=== PATIENT | female | born 1945 | race Caucasian/White ===

== ENCOUNTER 2021-08-17 07:44 | Inpatient (IN) | payer OTHER ==
[~2021-08-17] VITALS: Ht 167.6 cm; Wt 98.0 kg
[2021-08-17 08:41] LABS: EOSINOPHILS % 5.8 % (0.0-5.0); HEMATOCRIT. 39.8 % (36.0-48.0); LYMPHOCYTES % 29.5 % (20.0-50.0); MEAN CORPUSCULAR HEMOGLOBIN 30.3 pg (28.0-32.0); MEAN CORPUSCULAR VOLUME 92.9 fL (81.0-99.0); MEAN PLATELET VOLUME 9.1 fl (7.4-10.4); MONOCYTES % 6.2 % (2.0-8.0); NEUTROPHILS % 57.5 % (40.0-76.0); PLATELET 250 x1000/uL (130-400); RED BLOOD CELL COUNT 4.29 mill/uL (4.2-5.4); RED CELL DISTRIBUTION WIDTH 15.3 % (11.6-14.6)
[2021-08-17 08:43] LABS: CHLORIDE 107 mEq/L (98-107)
[2021-08-17 09:43] LABS: BG BASE EXCESS -5.6 mmol/L (-2.0-2.0); BG CARBOXYHEMOGLOBIN 0.1 % (0.5-1.5); BG DEOXYHEMOGLOBIN 6.5 % (0.0-5.0); BG FRACTION INSPIRED OXYGEN 100; BG HCO3 ACT 19.4 mmol/L (22.0-26.0); BG OXYGEN SATURATION 93.5 % (92.0-98.5); BG OXYHEMOGLOBIN 93.4 % (94.0-97.0); BG PCO2 36.4 mmHg (35.0-45.0); BG PH 7.345 (7.350-7.450); BG PO2 74.2 mmHg (75.0-100.0); BG SAMPLE SITE RIGHT RADIAL; BG TOTAL HEMOGLOBIN 12.4 g/dL (12.0-18.0); BG VENT MODE MASK - NRB
[2021-08-17] MEDS ORDERED: IOHEXOL-350 100 ML BOTTLE ONE (12:20)
[2021-08-17] MEDS ORDERED: HEPARIN 5000 UNITS/ML VIAL IV PRN ×2 (12:45)
[2021-08-17] MEDS ORDERED: HEPARIN 5000 UNITS/ML VIAL IV SCH (12:45)
[2021-08-17] MEDS ORDERED: HEPARIN 25,000 UNITS PREMIX 250 ML IV PRN (12:45)
[2021-08-17] MEDS ORDERED: HEPARIN BOLUS PRN aPTT <36 IV (13:00)
[2021-08-17] MEDS ORDERED: MAGNESIUM/ALUMINUM HYDROXIDE/SIMETHICONE 30ML UDC PO PRN (13:00)
[2021-08-17] MEDS ORDERED: ACETAMINOPHEN 325MG TABLET PO PRN ×2 (13:00)
[2021-08-17] MEDS ORDERED: GUAIFENESIN 200MG/10ML SUGAR FREE UDC PO PRN (13:00)
[2021-08-17] MEDS ORDERED: HYDROCODONE/ACETAMINOPHEN 5/325MG TABLET PO PRN (13:00)
[2021-08-17] MEDS ORDERED: ONDANSETRON HCL 4MG/2ML INJ IV PRN (13:00)
[2021-08-17] MEDS ORDERED: IPRATROPIUM/ALBUTEROL 0.5-3(2.5)MG/3ML NEB NEB PRN (13:00)
[2021-08-17] MEDS ORDERED: CLONIDINE 0.1MG TABLET PO PRN (13:00)
[2021-08-17 13:40] LABS: INR 1.1; PROTHROMBIN TIME 11.4 sec (9.6-11.0)
[2021-08-17] MEDS ORDERED: HEPARIN 80 UNITS/KG BOLUS IV SCH (14:00)
[2021-08-17] MEDS ORDERED: MEDR10TA3 PO (17:05)
[2021-08-17 23:17] LABS: BASOPHILS % 1.2 % (0.0-2.0); EOSINOPHILS % 2.2 % (0.0-5.0); HEMATOCRIT. 36.5 % (36.0-48.0); HEMOGLOBIN. 11.8 g/dL (12.0-16.0); LYMPHOCYTES % 22.8 % (20.0-50.0); MEAN CORPUSCULAR HEMOGLOBIN 29.9 pg (28.0-32.0); MEAN CORPUSCULAR VOLUME 92.7 fL (81.0-99.0); MEAN PLATELET VOLUME 8.6 fl (7.4-10.4); MONOCYTES % 6.3 % (2.0-8.0); NEUTROPHILS % 67.5 % (40.0-76.0); PLATELET 258 x1000/uL (130-400); RED BLOOD CELL COUNT 3.93 mill/uL (4.2-5.4); RED CELL DISTRIBUTION WIDTH 15.2 % (11.6-14.6)
[2021-08-17] MEDS: SODIUM CHLORIDE 0.45% 1,000 ML IV SCH (23:19)
[2021-08-18] VITALS (9 sets, daily range): BP systolic 117–138; BP diastolic 65–80
[2021-08-18 06:13] LABS: BASOPHILS % 0.9 % (0.0-2.0); EOSINOPHILS % 3.8 % (0.0-5.0); HEMATOCRIT. 33.3 % (36.0-48.0); HEMOGLOBIN. 11.1 g/dL (12.0-16.0); LYMPHOCYTES % 27.2 % (20.0-50.0); MEAN CORPUSCULAR HEMOGLOBIN 30.7 pg (28.0-32.0); MEAN CORPUSCULAR VOLUME 92.4 fL (81.0-99.0); MEAN PLATELET VOLUME 9.1 fl (7.4-10.4); MONOCYTES % 6.7 % (2.0-8.0); NEUTROPHILS % 61.4 % (40.0-76.0); PLATELET 249 x1000/uL (130-400); RED BLOOD CELL COUNT 3.61 mill/uL (4.2-5.4); RED CELL DISTRIBUTION WIDTH 14.9 % (11.6-14.6)
[2021-08-18 06:54] LABS: CHLORIDE 107 mEq/L (98-107)
[2021-08-18] MEDS: SODIUM CHLORIDE 0.45% 1,000 ML IV SCH ×2 (08:39→17:47)
[2021-08-18 09:31] LABS: BG BASE EXCESS 1.2 mmol/L (-2.0-2.0); BG CARBOXYHEMOGLOBIN 0.3 % (0.5-1.5); BG DEOXYHEMOGLOBIN 4.4 % (0.0-5.0); BG FRACTION INSPIRED OXYGEN 100; BG HCO3 ACT 26.5 mmol/L (22.0-26.0); BG METHEMOGLOBIN 0.3 % (0.0-1.5); BG OXYGEN SATURATION 95.6 % (92.0-98.5); BG PCO2 45.1 mmHg (35.0-45.0); BG PH 7.387 (7.350-7.450); BG PO2 81.8 mmHg (75.0-100.0); BG SAMPLE SITE RIGHT RADIAL; BG TOTAL HEMOGLOBIN 11.6 g/dL (12.0-18.0); BG VENT MODE MASK - NRB
[2021-08-18] MEDS: HEPARIN BOLUS PRN aPTT 37-44 IV ×2 (09:36→17:36)
[2021-08-18] MEDS: HEPARIN 25,000 UNITS PREMIX 250 ML IV SCH ×2 (09:46→17:43)
[2021-08-18] MEDS ORDERED: NALOXONE HCL 0.4MG/ML VIAL IV PRN (17:00)
[2021-08-18 21:37] LABS: HEMATOCRIT 33.1 % (36.0-48.0); HEMOGLOBIN 10.8 g/dL (12.0-16.0)
[2021-08-19] VITALS: BP 124/54
[2021-08-19 02:00] VITALS: BP 129/52
[2021-08-19] MEDS: HEPARIN 25,000 UNITS PREMIX 250 ML IV SCH (02:19)
[2021-08-19 04:00] VITALS: BP 117/68
[2021-08-19] MEDS: SODIUM CHLORIDE 0.45% 1,000 ML IV SCH (04:22)
[2021-08-19 06:00] VITALS: BP 123/67
[2021-08-19 06:07] LABS: HEMOGLOBIN 10.8 g/dL (12.0-16.0); MEAN CORPUSCULAR HEMOGLOBIN 30.5 pg (28.0-32.0); MEAN CORPUSCULAR VOLUME 93.4 fL (81.0-99.0); PLATELET 241 x1000/uL (130-400); RED BLOOD CELL COUNT 3.54 mill/uL (4.2-5.4); RED CELL DISTRIBUTION WIDTH 15.1 % (11.6-14.6)
[2021-08-19 08:00] VITALS: BP 129/57
[2021-08-19 11:32] VITALS: BP 129/70
[2021-08-19] MEDS ORDERED: POLYETHYLENE GLYCOL 3350 (17GM) 1 DOSE PACK PO NR (11:45)
== END 2021-08-19 18:41 | disposition short-term general hospital (02) | DRG 175 ==
LOC: ER 07:56 → MICUSO 12:11 → EDBEDREQTM 12:16 → EDBEDREQ 12:16 → SUPCPDRO 12:36 → EDBEDREQSVC 12:57 → EDBEDREQTM 12:57 → EDBEDREQ 12:57 → CANRESERV 23:35 → ENRESERV 23:35 → 5EST 23:52
PROVIDERS: ADMIT Internal Medicine; ATTEND Internal Medicine
DX: I26.99 Other pulmonary embolism without acute cor pulmonale (principal); J96.01 Acute respiratory failure with hypoxia; N93.9 Abnormal uterine and vaginal bleeding, unspecified; D25.9 Leiomyoma of uterus, unspecified; Z20.822 Contact with and (suspected) exposure to COVID-19; D50.0 Iron deficiency anemia secondary to blood loss (chronic); Z90.710 Acquired absence of both cervix and uterus; R91.1 Solitary pulmonary nodule
CPT/HCPCS: 36415; 36600; 71045; 71275; 80048; 80053; 82375; 82805; 83735; 83880; 84100; 84484; 85014; 85018; 85025; 85027; 87426; 87804; 93005; 93970; 99291; J1644; Q9967